=== PATIENT | female | born 1985 | race Caucasian/White ===

== ENCOUNTER 2023-12-26 05:43 | Inpatient (IN) ==
--- NOTE | 2023-12-10 12:37 | Anesthesiology Consultation ---
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 Surgery Operation Date: 12/26/23 07:30 Proposed Procedures p Section (Delivery of Baby Through Abdominal Incision) in LD - Keke Eubanks MD, FACOG s With Bilateral Tubal Ligation - Keke Eubanks MD, FACOG Height/Weight Height: 5 ft 2 in Weight: 90.718 kg Allergies Allergy/AdvReac Type Severity Reaction Status Date / Time bee venom protein (honey bee) Allergy Severe Anaphylaxis Verified 12/10/23 12:12 sulfamethoxazole Allergy Severe Anaphylaxis Verified 12/10/23 12:12 [From Bactrim] trimethoprim [From Bactrim] Allergy Severe Anaphylaxis Verified 12/10/23 12:12 Medications Home Medications Medication Instructions Recorded Confirmed Last Taken vit 168-iron 27 mg-folic 2 cap PO QAM 05/21/23 12/10/23 Unknown acid 800 mcg-omega3 235 mg capsule (One-A-Day -1) acetone (urine) test (Ketone Urine #50 ea 10/25/23 12/05/23 Unknown Test strips) blood sugar diagnostic (OneTouch #150 ea 10/25/23 12/05/23 Unknown Verio test strips) blood-glucose meter (OneTouch #1 ea 10/25/23 12/05/23 Unknown Verio Reflect Meter) lancets 33 gauge (OneTouch Delica #150 ea 10/25/23 12/05/23 Unknown Plus Lancet) L.acidophilus,rhamnosus-B.breve-S.thermophilus 1 tab PO QPM 12/10/23 12/10/23 Unknown 3 billion cell chew tab magnesium 500 mg tablet 15 mg PO HS 12/10/23 12/10/23 Unknown vitamin B6-vitamin E-magnesium 1 tab PO QPM 12/10/23 12/10/23 Unknown tablet Past Medical History Medical History Gestational diabetes checking BS QID, no meds History of anesthesia reaction "took awhile to kick in" History of COVID-19 (~2021) not hospitalized, resolved Past Family History Family History Brother Autoimmune disease Past Surgical History Surgical History History of ankle surgery lt Previous section S/P cholecystectomy S/P wisdom tooth extraction Social History Smoking Status: Never smoker Do You Dip or Chew Tobacco: No Hx Alcohol Use: No Hx Substance Use: No substance use type: does not use Lab Results Anesthesia Preop Results Results Anesthesia Widget: Urine Color Yellow 10/11/23 Urine Appearance Cloudy (Clear) A 10/11/23 Urine pH 7.0 (4.5-7.5) 10/11/23 Urine Specific [place] 1.022 (1.000-1.030) 10/11/23 Urine Protein Negative (Negative) 10/11/23 Urine Glucose (UA) Negative (Negative) 10/11/23 Urine Ketones Negative (Negative) 10/11/23 Urine Blood Negative (Negative) 10/11/23 Urine Nitrite Negative (Negative) 10/11/23 Urine Bilirubin Negative (Negative) 10/11/23 Urine Urobilinogen Negative (Negative) 10/11/23 Urine Leukocyte Esterase Negative (Negative) 10/11/23 Urine WBC (Auto) 1-5 /hpf (0-5) 10/11/23 Urine RBC (Auto) 0-4 /hpf (0-4) 10/11/23 Urine Hyaline Casts (Auto) 1-5 /lpf (0-5) 10/11/23 Urine Epithelial Cells (Auto) >30 /lpf (0-5) H 10/11/23 Urine Bacteria (Auto) 2+ (Negative) H 10/11/23
--- NOTE | 2023-12-25 09:23 | History & Physical Report ---
Date of Service December 25, 2023 Assessment & Plan (1) Gestational diabetes: (2) Previous section complicating : (3) Supervision of elderly multigravida: Plan Patient presents to labor and delivery for scheduled repeat c/s. The risks of surgery were discussed with the patient including the risks of anesthesia, bleeding requiring transfusion, infection, poor wound healing, urinary retention, damage to surrounding structures including bowels, bladder, vessels, nerves and ureters that may require further surgery, hospitalization or intervention. The other risks of any surgery were discussed including heart attack, blood clots, stroke or . Discussed small risk of injury to the baby. The consent was reviewed and signed. Questions asked and answered. Desires tubal ligation--discussed permanent, irreversible, discussed other options for control. Declines. History of Present Illness Chief Complaint: repeat c/s Primary Care Provider: Deana BretWalker Gary Patient is a 38yowf with iup at 39 4/7 weeks who presents to labor and delivery for repeat c/s. First section was for breech. Declines trial of labor. Desires repeat and desires tubal ligation. testing reassuring. GDM diet controlled. and Delivery Plans AMA *Weekly NST's @ 36wks. Prior Section affecting *desires repeat c/s and tubal. C/S WITH TUBAL SCHEDULED WITH DR. KENT ON 12/25 Rubella equiv--> MMR PP Pap normal, +HRHPV--> repeat pap 05/2024 Gestational Diabetes Growth u/s's q 4 weeks OB Labs: Blood Type A Positive 05/28/23 Antibody Screen NEGATIVE 05/28/23 Hemoglobin 11.8 g/dl (12.0-16.0) L 10/11/23 Hematocrit 35.5 % (37.0-47.0) L 10/11/23 Mean Corpuscular Volume 86.1 fL (80.0-100.0) 05/28/23 Platelet Count 401 K/uL (130-400) H 05/28/23 Rubella IgG Antibody Equivocal (Immune) L 05/28/23 Rapid Plasma Reagin Nonreactive (Nonreactive) 05/28/23 Hepatitis B Surface Antigen. NON-REACTIVE (NON-REACTIVE) 05/28/23 Hepatitis C Antibody (EIA) NON-REACTIVE (NON-REACTIVE) 05/28/23 HIV (1&2) Ag and Ab Confirmation NON-REACTIVE (NON-REACTIVE) 05/28/23 Glucose 1 Hour 50 gm Load 148 mg/dl (70-130) H 07/15/23 Maternal Serum Alpha Fetoprotein 38.5 ng/mL 07/15/23 OB Optional Labs: Chlamydia trachomatis RNA Not Detected (NotDetected) 05/28/23 Neisseria gonorrhoeae RNA Not Detected (NotDetected) 05/28/23 Alpha Fetoprotein Triple Screen SEE NOTE 07/15/23 Labs Reviewed: Declines carrier screening--mln cfdna-low risk--mln afp neg--akh GBS negative--ak Allergies Allergy/AdvReac Type Severity Reaction Status Date / Time bee venom protein (honey bee) Allergy Severe Anaphylaxis Verified 12/25/23 09:06 sulfamethoxazole Allergy Severe Anaphylaxis Verified 12/25/23 09:06 [From Bactrim] trimethoprim [From Bactrim] Allergy Severe Anaphylaxis Verified 12/25/23 09:06 Home Medications Medication Instructions Recorded Confirmed Type vit 168-iron 27 mg-folic 2 cap PO QAM 05/21/23 12/25/23 History acid 800 mcg-omega3 235 mg capsule (One-A-Day -1) acetone (urine) test (Ketone Urine #50 ea 10/25/23 12/25/23 Rx Test strips) blood sugar diagnostic (OneTouch #150 ea 10/25/23 12/25/23 Rx Verio test strips) blood-glucose meter (OneTouch #1 ea 10/25/23 12/25/23 Rx Verio Reflect Meter) lancets 33 gauge (OneTouch Delica #150 ea 10/25/23 12/25/23 Rx Plus Lancet) L.acidophilus,rhamnosus-B.breve-S.thermophilus 1 tab PO QPM 12/10/23 12/25/23 History 3 billion cell chew tab magnesium 500 mg tablet 15 mg PO HS 12/10/23 12/25/23 History vitamin B6-vitamin E-magnesium 1 tab PO QPM 12/10/23 12/25/23 History tablet Patient History Medical History History of anesthesia reaction "took awhile to kick in" History of COVID-19 (~2022) not hospitalized, resolved Gestational diabetes checking BS QID, no meds Surgical History Hx of esophagogastroduodenoscopy Hx of colonoscopy Previous section S/P wisdom tooth extraction History of ankle surgery lt S/P cholecystectomy Family History Brother Autoimmune disease Social History Smoking Status: Never smoker Second Hand Exposure: No; Do You Dip or Chew Tobacco: No; Hx Alcohol Use: No Hx Substance Use: No Preferred Language: Albanian Communication Ability: Effective Field Identification Specialist Required: No Beliefs That Will Affect Care: None marital status: marital status details: Mike (36) [phone] Current Living Situation: Family Current Living Situation Comment: lives with spouse, son, step daughter, 2 cats, 1 dog, son change litter current occupational status: employed 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 Date GA wks Lbr Lgth wt Sex Type del Anes Place Del Prov ? 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
--- NOTE | 2023-12-26 06:25 | History & Physical Bridge Note ---
Date of Service December 26, 2023 History & Physical Bridge Note I have examined the patient, reviewed the History & Physical and in the interval since the performance of the History & Physical I have noted the following changes of clinical significance: no changes noted
[2023-12-26] MEDS: LACTATED RINGER'S 1,000 ML IV SCH ×2 (06:30→19:43)
[2023-12-26 06:37] LABS: Basophils # (auto) 0.02 K/uL (0.00-0.20); Basophils % (auto) 0.2 %; Eosinophils % (auto) 0.8 %; Hematocrit (blood only) 35.3 % (37.0-47.0); Hemoglobin 12.3 g/dl (12.0-16.0); Immature Granulocytes # (auto) 0.09 K/uL (0.01-0.20); Immature Granulocytes % (auto) 0.8 %; Lymphocytes # (auto) 1.98 K/uL (1.20-3.40); Lymphocytes % (auto) 16.7 %; Mean Corpuscular Hemoglobin 29.4 pg (25.0-34.0); Mean Corpuscular Hgb Conc 34.8 g/dL (32.0-36.0); Mean Corpuscular Volume 84.2 fL (80.0-100.0); Mean Platelet Volume 10.7 fL (9.4-12.4); Monocytes # (auto) 0.57 K/uL (0.11-0.59); Monocytes % (auto) 4.8 %; Neutrophils # (auto) 9.09 K/uL (1.40-6.50); Neutrophils % (auto) 76.7 %; Platelet Count 276 K/uL (130-400); RDW Coefficient of Variation 13.6 % (11.5-14.5); RDW Standard Deviation 42.1 fL (36.4-46.3); Red Blood Count 4.19 M/uL (4.20-5.40); White Blood Count 11.85 K/ul (4.8-10.8)
[2023-12-26] MEDS ORDERED: fentaNYL citrate PF 100 MCG/2 ML VIAL ONE (06:51)
[2023-12-26] MEDS ORDERED: ONDANSETRON INJ 2 MG/ML 2 ML VIAL ONE (06:51)
[2023-12-26] MEDS ORDERED: OXYTOCIN 10 UNITS/ML VIAL ONE (06:51)
[2023-12-26] MEDS ORDERED: PHENYLEPHRINE 100MCG/ML 10ML SYR IV ONE (06:51)
[2023-12-26] MEDS ORDERED: MoRPHine SULFATE PF 1 MG/ML 10 ML AMP/VIAL ONE (06:52)
[2023-12-26] MEDS: CITRIC ACID/SODIUM CITRATE 15 ML UDC PO SCH (07:18)
[2023-12-26] MEDS: ceFAZolin 2,000 MG in SYRINGE 0 ML IV SCH (07:25)
[2023-12-26] MEDS ORDERED: PROMETHAZINE HCL 6.25 MG in SODIUM CHLORIDE 0.9% 50 ML IV PRN (07:40)
[2023-12-26] MEDS ORDERED: NALOXONE HCL 0.4 MG/1 ML VIAL/CARP IV PRN (07:40)
[2023-12-26] MEDS ORDERED: ONDANSETRON INJ 2 MG/ML 2 ML VIAL IV PRN (07:40)
[2023-12-26] MEDS ORDERED: NALOXONE HCL 1 MG in SODIUM CHLORIDE 0.9% 1,000 ML IV PRN (07:40)
[2023-12-26] MEDS ORDERED: NALOXONE HCL 0.08 MG in SYRINGE 1.8 ML IV PRN (07:40)
[2023-12-26] MEDS ORDERED: ePHEDrine sulfate 50 MG/ML AMP IV PRN (07:40)
[2023-12-26] MEDS ORDERED: NALBUPHINE HCL 5 MG in SYRINGE 0 ML IV PRN (07:40)
[2023-12-26] MEDS ORDERED: HYDROmorphone INJ 0.5 MG/0.5 ML SYR IV PRN (07:40)
[2023-12-26] MEDS ORDERED: LACTATED RINGER'S 500 ML IV PRN (07:40)
[2023-12-26] MEDS ORDERED: DC INTRASPINAL MORPHINE SCH (07:45)
[2023-12-26] MEDS ORDERED: NO NARCOTICS OR SEDATIVES SCH (07:45)
--- NOTE | 2023-12-26 08:31 | Anesthesiology Progress Note ---
Date of Service December 26, 2023 Anesthesia Post Procedure Vital Signs Vital Signs: Temp Pulse Resp BP Pulse Ox 12/26/23 08:28 73 114/59 L 12/26/23 08:27 73 100 12/26/23 06:07 83 118/73 12/26/23 06:03 36.8 C 18 Transfer of Care Handoff Completed per policy Notes Mental Status: alert / awake / arousable and participated in evaluation Patient Amnestic to Procedure: No Nausea / Vomiting: adequately controlled Pain: adequately controlled Airway Patency, RR, SpO2: stable & adequate BP & HR: stable & adequate Hydration State: stable & adequate Neuraxial Anesthesia: was administered and sensory block is resolving Anesthetic Complications: no major complications apparent and Pt Satisfied with anesthetic care
--- NOTE | 2023-12-26 08:54 | Operative Report ---
PG Post Operative Report Pre & Post Diagnosis Operation Date: 12/26/23 07:30 Pre-Op Diagnosis: Intrauterine at 39 Weeks; History of Previous Caesarean Section; Desires Repeat and Desires Permanent Sterilization Post-Op Diagnosis: Same; Delivery of a Live Baby Boy at 0751 I identified the patient and participated in the time-out.: Yes Procedure Operation Date: 12/26/23 07:30 Actual Procedures p Repeat lower transverse Section(Bilateral) - Keke Eubanks MD, FACOG s with Bilateral Tubal Ligation - Keke Eubanks MD, FACOG Surgeon Keke Eubanks MD, FACOG Manager Sound Dr. Leahy Estimated Blood Loss 279 Findings Consistent with Post-Op Diagnosis normal appearing uterus and tubes. small ovaries. viable male . Fluids 1100cc Specimens none Drains bobo Anesthesia Type General Complications none Disposition Accompanied Patient To Recovery: No Disposition: L&D Indications Patient is a 38yowf with iup at 39 weeks who present for repeat c/s and tubal ligation Description of Procedure The patient was taken to the operating room where she was identified verbally and by bracelet. She was seated on the operating table where a spinal anesthetic was placed by anesthesia. She was then placed in the supine position with a leftward tilt. A Bobo catheter was placed sterilely. the patient was prepped and draped in a normal standard fashion. the anesthetic was tested and found to be adequate. A time-out was held, identifying correct patient, procedure, positioning and preoperative antibiotics. There were no concerns. A Pfannenstiel skin incision was made with a knife and taken down to the underlying layer of fascia with the knife and Bovie electrocautery. Bleeding was attended to with the Bovie. The fascia was incised in the midline with the knife and taken out laterally with scissors. The superior edge of the fascial incision was grasped, elevated and the underlying layer of rectus muscle was taken off bluntly and with scissors. In a similar fashion, the inferior edge of the fascial incision was grasped, elevated and the underlying layer of rectus muscle was taken off bluntly and with scissors. The muscles were bluntly in the midline. The peritoneum was entered bluntly. The incision was then stretched. The bladder blade was placed. The vesicouterine peritoneum was identified, entered with scissors and taken out laterally with scissors. The bladder flap was created digitally A hysterotomy incision was scored with a knife and the incision was stretched superiorly and inferiorly with the flexographic press operator's fingers. The operators hand was placed into the incision and the head was delivered atraumatically. No nuchal cord. The nose and mouth were bulb suctioned. the rest of the infant was then delivered without difficulty. The nose and mouth were again bulb suctioned. The cord was clamped and cut and the was then handed off to the awaiting nurse research for drying and attention. Cord blood and segment were obtained. The placenta was Manually extracted. The uterus was exteriorized and cleared of all clot and debris with moistened laparotomy sponges. The hysterotomy incision was repaired in two layers, the first in a running locked layer, the second in an imbricating layer. Several sutures needed in the left corner for hemostasis. Hemostasis was noted to be good. Then a bilateral salpingectomy was performed using the ligasure first on the right and then on the left. Good hemostasis noted. Posterior cul-de-sac was irrigated and cleared of all clot and debris. The hysterotomy incision was again inspected and found to be hemostatic. the uterus was reinteriorized. Hysterotomy incision was again inspected and found to be hemostatic. The fascia was then reapproximated with 0 Vicryl starting at the edges and meeting in the midline. The subcuticular tissues were copiously irrigated and bleeding was attended to with cautery. The skin was then closed with 4-0 Vicryl in a subcuticular fashion. All sponge, lap and needle counts were correct x 2. The patient tolerated the procedure well and was taken to the recovery room in stable condition. I attest to the content of the Intraoperative Record and any orders documented therein. Any exceptions are noted below. OB Procedure Charges [id number] Add on Tubal for C/S
[2023-12-26] MEDS: KETOROLAC 30 MG/ML VIAL IV PRN (09:09)
[2023-12-26] MEDS ORDERED: MAGNESIUM HYDROXIDE SUSP 30 ML UDC PO PRN (09:31)
[2023-12-26] MEDS ORDERED: BENZOCAINE 20% SPRY 85 APPLN/85 GM CAN EXT PRN (09:31)
[2023-12-26] MEDS ORDERED: SENNA 8.6 MG TAB PO PRN (09:31)
[2023-12-26] MEDS ORDERED: HYDROCORTISONE ACETATE 25 MG SUPP PR PRN (09:31)
[2023-12-26] MEDS ORDERED: SODIUM CHLORIDE 0.9% 250 ML IV PRN (12:50)
[2023-12-26] MEDS: SIMETHICONE 80 MG CHEW PO SCH (13:29)
[2023-12-26] MEDS: OXYTOCIN 20 UNITS/LR 1,002 ML IV SCH (14:53)
[2023-12-26] MEDS: SODIUM CHLORIDE 0.9% 1,000 ML IV SCH (19:43)
[2023-12-26] MEDS: MoRPHine SULFATE PF 1 MG/ML 10 ML AMP/VIAL INT SPINAL ONE (19:43)
[2023-12-26] MEDS: OXYTOCIN 10 UNITS in LACTATED RINGER'S 1,000 ML IV SCH (19:46)
[2023-12-26] MEDS: DOCUSATE SODIUM 100 MG CAP PO SCH (20:08)
[2023-12-26] MEDS: diphenhydrAMINE 50 MG/ML VIAL IV PRN (20:08)
[2023-12-27] MEDS ORDERED: KETOROLAC 30 MG/ML VIAL IV PRN (01:40)
[2023-12-27] MEDS ORDERED: MEPERIDINE HCL 50 MG/ML CARP IV PRN (01:40)
[2023-12-27] MEDS ORDERED: diphenhydrAMINE 50 MG/ML VIAL IV PRN (01:40)
[2023-12-27] MEDS ORDERED: diphenhydrAMINE Capsule 25 MG CAP PO PRN (01:40)
[2023-12-27] MEDS ORDERED: ONDANSETRON INJ 2 MG/ML 2 ML VIAL IV PRN (01:40)
[2023-12-27] MEDS: oxyCODONE/ACETAMINOPHEN 5mg/325mg TAB PO PRN (04:28)
[2023-12-27] MEDS: IBUPROFEN 600 MG TAB PO PRN (04:28)
--- NOTE | 2023-12-27 05:43 | Obstetrical Progress Note ---
Date of Service December 27, 2023 Assessment & Plan (1) Encounter for care after hospital delivery: Plan 38 yo post- day 1 s/p C- section Continue post care Feels well today. Vital signs stable Encourage ambulation and Hgb stable Rubella equivocal, MMR vaccine ordered Pain well controlled with pain meds Admission and Anticipated Discharge Date Admission Date: December 26, 2023 Supervising Physician Co-Signing Physician Notes Resident Physician Supervision Note: I interviewed and examined the patient. Discussed with Dr. White and agree with findings and plan as documented in the note. Any exceptions or clarifications are listed here: Doing well pod 1. Has already voided and ambulated. Pain controlled. routine care. Documented By: Keke Eubanks MD, FACOG Subjective 38 yo post- day 1 s/p C- section Ambulation: ambulating normally Voiding: no voiding problems Passing Gas:: Yes Diet Tolerance:: regular diet Lochia:: Small Feeding Type:breast feeding Current Pain Level: moderate, controlled by pain meds Resting comfortably this AM in NAD. Denies MORALES, CP, SOB, N/V/D, LE pain/swelling. Review of Systems Review of Systems: as per hpi Physical Exam Physical Exam: General: patient resting comfortably, NAD, non-toxic in appearance, AA&O x 4, answers questions appropriately. Skin: warm, dry, intact HEENT: NC/AT, anicteric sclera, conjunctiva without injection, moist mucus membranes. Heart: +S1/S2, regular, no m/r/g Lungs: equal air entry bilaterally, no rales/rhonchi/wheezes Abd: +BS, soft, NT/ND, uterine fundus firm at umbilicus, Incission clean and dry. No erythema, bleeding or purulent discharge Ext: warm, no clubbing/cyanosis or edema Neuro: nonfocal, patient AA&O x 4, speech intact, no facial droop, moving all extremities on command. Results & Data Vital Signs (Past 12 Hours) Vital Signs Temp Pulse Resp BP Pulse Ox O2 Del Method 12/27/23 04:00 36.7 C 82 16 95/57 L 95 Room Air 12/26/23 22:59 36.5 C 69 16 95/60 L 98 Room Air 12/26/23 20:15 36.5 C 87 18 109/73 98 Room Air 12/26/23 17:57 18 99 Resident Activity Tracking Resident Involvement: Resident Care Provided Care Provided: OB Delivery
[2023-12-27] MEDS: MEASLES, MUMPS & RUBELLA VIRUS VACCINE (MMR) 0.5ML VIAL SQ ONE (09:17)
[2023-12-27] MEDS: PRENATAL VITAMIN 1 TAB PO SCH (09:17)
[2023-12-27] MEDS: bisacodyL 5 MG TABEC PO SCH (20:51)
[2023-12-28] MEDS ORDERED: bisacodyL 10 MG SUPP PR PRN (08:47)
--- NOTE | 2023-12-28 09:06 | Obstetrical Progress Note ---
Date of Service December 28, 2023 Assessment & Plan (1) Encounter for care after hospital delivery: POD#2, D/C instructions reviewed; Feels ready to go home. Subjective Ambulation: ambulating normally Voiding: no voiding problems Passing Gas:: Yes Diet Tolerance:: regular diet Lochia:: Small Feeding Type:: breast feeding Physical Exam Constitutional WD/WN, vitals as above Eyes PERRL, conjunctivae normal, anicteric sclerae Neck normal visual inspection Respiratory normal respiratory effort and able to speak in complete sentences; no respiratory distress and no labored breathing Cardiovascular Rate/Rhythm: regular rate and regular rhythm Extremities: no edema Chest (Breasts) Chest: normal inspection of chest Gastrointestinal (Abdomen) Inspection/Auscultation: abdomen normal to inspection Soft, postgravid C/D/I with steri strips Psychiatric A+Ox3, euthymic affect Genitourinary OB Exam Abdomen: + fundal height Fundus: + firm and + relation to umbilicus (fundus just below umbilicus); not tender Results & Data Vital Signs (Past 12 Hours) Vital Signs Temp Pulse Resp BP Pulse Ox O2 Del Method 12/27/23 23:21 98.1 F 78 18 94/60 L 97 Room Air
--- NOTE | 2023-12-30 14:07 | Discharge Summary ---
Date of Service December 30, 2023 Admission HPI Per Admitting Provider Patient is a 38yowf with iup at 39 4/7 weeks who presents to labor and delivery for repeat c/s. First section was for breech. Declines trial of labor. Desires repeat and desires tubal ligation. testing reassuring. GDM diet controlled. and Delivery Plans AMA *Weekly NST's @ 36wks. Prior Section affecting *desires repeat c/s and tubal. C/S WITH TUBAL SCHEDULED WITH DR. KENT ON 12/25 Rubella equiv--> MMR PP Pap normal, +HRHPV--> repeat pap 05/2024 Gestational Diabetes Growth u/s's q 4 weeks OB Labs: Blood Type A Positive 05/28/23 Antibody Screen NEGATIVE 05/28/23 Hemoglobin 11.8 g/dl (12.0-16.0) L 10/11/23 Hematocrit 35.5 % (37.0-47.0) L 10/11/23 Mean Corpuscular Volume 86.1 fL (80.0-100.0) 05/28/23 Platelet Count 401 K/uL (130-400) H 05/28/23 Rubella IgG Antibody Equivocal (Immune) L 05/28/23 Rapid Plasma Reagin Nonreactive (Nonreactive) 05/28/23 Hepatitis B Surface Antigen. NON-REACTIVE (NON-REACTIVE) 05/28/23 Hepatitis C Antibody (EIA) NON-REACTIVE (NON-REACTIVE) 05/28/23 HIV (1&2) Ag and Ab Confirmation NON-REACTIVE (NON-REACTIVE) 05/28/23 Glucose 1 Hour 50 gm Load 148 mg/dl (70-130) H 07/15/23 Maternal Serum Alpha Fetoprotein 38.5 ng/mL 07/15/23 OB Optional Labs: Chlamydia trachomatis RNA Not Detected (NotDetected) 05/28/23 Neisseria gonorrhoeae RNA Not Detected (NotDetected) 05/28/23 Alpha Fetoprotein Triple Screen SEE NOTE 07/15/23 Labs Reviewed: Declines carrier screening--mln cfdna-low risk--mln afp neg--[facility] GBS negative--[facility] Discharge Data Consultations 12/26/23 05:50 Consult Anesthesiology Stat Procedures Performed Operation Date: 12/26/23 07:30 Actual Procedures p Section(Bilateral) - Keke Kent MD, FACOG s with Bilateral Tubal Ligation - Keke Kent MD, FACOG Hospital Course (1) S/P section: Plan Patient was admitted and underwent a repeat lower transverse and bilateral salpingectomy without issues. QBL 279cc. Postop course uncomplicated--tolerated a regular diet, ambulated without difficulty, voided after removal of her bobo catheter, passed gas. Her d/c h/h was 12.9. INstructions given and 6 week f/u planned. d/c on 12/27. Coding Level of Care Code None Diagnoses S/P section Z98.891
== END 2023-12-28 15:06 | disposition home or self-care (01) | DRG 785 ==
LOC: 4S1 05:43 → EDSTATUS 07:30 → 4E2 15:00
PROC: M.PPTLD (2023-12-26 07:30)
DX: Z3A.39 39 weeks gestation of pregnancy; Z37.0 Single live birth; Z30.2 Encounter for sterilization; O24.429 Gestational diabetes mellitus in childbirth, unspecified control; O34.211 Maternal care for low transverse scar from previous cesarean delivery